=== PATIENT | female | born 1995 | race Caucasian/White ===

== ENCOUNTER 2021-08-26 08:59 | Emergency (ER) | payer OTHER, SELFPAY ==
[2021-08-26 09:08] VITALS: BP 114/74; PULSE 97; RESP 16; TEMP 37.3; O2SAT 99
--- NOTE | 2021-08-26 09:30 | ED.FEMALEGU ---
HPI - Female Genitourinary General Chief complaint: Urogenital-Female Stated complaint: poss uti Source: patient Mode of arrival: ambulatory Limitations: no limitations History of Present Illness HPI Narrative: Patient is a 25-year-old female who presents complaining of dysuria and frequency x3 days. Patient reports lower pelvic pain but also reports started her menstrual cycle today. She denies fever, flank pain and all other complaints at this time. Patient denies taking vqbd-jvb-[id number] medications prior to arrival. Related Data Home Medications Medication Instructions Recorded Confirmed fluoxetine 20 mg PO DAILY 08/26/21 08/26/21 Allergies Allergy/AdvReac Type Severity Reaction Status Date / Time No Known Allergies Allergy Verified 08/26/21 09:23 Review of Systems Review of Systems: CONSTITUTIONAL: Denies fever, chills, or sweats. EYES: Denies visual changes, redness, or discharge. ENT: Denies rhinorrhea, congestion, sore throat, or otalgia. CARDIOVASCULAR: Denies chest pain, palpitations, or edema. RESPIRATORY: Denies cough or dyspnea. GASTROINTESTINAL: Denies abdominal pain, nausea, vomiting, or diarrhea. GENITOURINARY: Reports dysuria and frequency SKIN: Denies rash or itching. MUSCULOSKELETAL: Denies back pain, joint pain, or myalgia. NEUROLOGIC: Denies headache, numbness, dizziness, or weakness. PSYCHIATRIC: Denies anxiety or depression. [facility] Past Medical History Medical History (Updated 08/26/21 @ 09:35 by ALEJANDRO Dixon) No significant past medical history Surgical History Surgical History (Updated 08/26/21 @ 09:32 by ALEJANDRO Dixon) No significant past surgical history Social History Social History (Updated 08/26/21 @ 09:32 by ALEJANDRO Dixon) Smoking status: Never smoker Alcohol intake: never Substance use: never Living arrangements: with family Comments At the time of signature, I have reviewed and agree with nursing past medical, surgical, social, and family history unless otherwise noted. Please see nursing chart for further information. There is no relevant family history pertinent to the presenting complaint. Exam Narrative: GENERAL: Well-appearing, well-nourished, and in no acute distress. HEAD: Normocephalic, atraumatic. EYES: EOMI. No redness or drainage. Conjunctiva are normal. ENT: Mucous membranes pink and moist. CHEST: No respiratory distress. HEART: Regular rate and rhythm. EXTREMITIES: Normal range of motion. No edema. SKIN: Warm, dry, no rash. NEURO: No focal deficits. Alert and oriented x3. Gait steady. PSYCH: Normal affect. No signs of depression or anxiety. Course Vital Signs Vital signs: Vital Signs Temperature 37.3 C 08/26/21 09:08 Pulse Rate 97 08/26/21 09:08 Respiratory Rate 16 08/26/21 09:08 Blood Pressure 114/74 08/26/21 09:08 Pulse Oximetry 99 08/26/21 09:08 Temperature 37.3 C 08/26/21 09:08 Pulse Rate 97 08/26/21 09:08 Respiratory Rate 16 08/26/21 09:08 Blood Pressure 114/74 08/26/21 09:08 Pulse Oximetry 99 08/26/21 09:08 Reviewed MDM - Female Genitourinary MDM Narrative Medical decision making narrative: Patient's urine is positive for nitrates and leukocytes. Patient is symptomatic. Patient to be started on nitrofurantoin at this time. Discussed red flags in which patient needs to seek further medical care. Patient agrees with plan of care. Patient is stable for discharge to home with outpatient follow-up as discussed. Differential Diagnosis Differential diagnosis: Likely urinary tract infection, trichomoniasis, ovarian cyst and cystitis Medical Records Attestation: I reviewed the patient's medical records. Lab Data Attestation: I reviewed the patient's lab results. Labs: Urine Glucose Negative Reference Range: Negative Urine Bilirubin Negative
== END 2021-08-26 09:40 | disposition home or self-care (01) ==
PROVIDERS: Emergency Provider Nurse Practitioner
DX: N39.0 Urinary tract infection, site not specified (principal); F32.A Depression, unspecified
CPT/HCPCS: 81003; 87077; 87086; 87088; 87186; 99213; G0463

== ENCOUNTER 2025-03-09 08:46 | Outpatient (CLI) | payer OTHER, SELFPAY ==
--- OUTSIDE RECORDS SUMMARY | 2025-03-09 08:53 | XMS_ITS | Referral Summary ---
Author Organization [facility] Address [address] [place] [address] Care Team Providers Care Security Guards Dispatcher Name Role Phone No, Physician Primary Care Provider Encounters Date Type Department Care Team Description 03/04/2025 Telephone [facility] [address] [place] [phone] Ernestina Epps RN OB US Orders 02/21/2025 2:30 PM CDT Office Visit [facility] at [address] [place] [address] Pili Gregorio NP COVID-19 (Primary Dx) 02/01/2025 Results Follow-Up [facility] [address] [place] [phone] Thalia Serrano NP Pap and HPV, reflex to HPV Genotypes 01/16/2025 Results Follow-Up [facility] [address] [place] [address] [address] [place] [address] Valentino Calderón MD Surgical pathology 01/11/2025 4:30 PM CDT - 01/11/2025 11:59 PM CDT Hospital Encounter [address] [address] Discharge Disposition: Discharge to home or self care 01/11/2025 3:45 PM CDT Procedure visit Gaurav Sullivan [address] [place] [address] [address] [place] [phone] Valentino Calderón MD ASCUS with positive high risk HPV cervical (Primary Dx) 12/16/2024 Results Follow-Up [facility] [address] [place] [phone] Thalia Serrano, FREIGHT RECEIVER RPR Titer from Last 3 Months Allergies No known active allergies Medications FLUoxetine (PROzac) 20 mg capsule Take 1 capsule (20 mg total) by mouth daily 02/02/2022 Active valACYclovir (Valtrex) 1 gram tabletIndicatio ns:Prophylaxis, Medical Take 2 tablets every 12 hours for 1 day only for episodic treatment. 30 tablet 12/28/2024 Active Active Problems Problem Noted Date Diagnosed Date Irregular menses 12/07/2024 Overview (12/07/2024): Continue to monitor. Discussed lab work ordered by me, but patient will forward her recent labs ordered by an outside provider for me to review. Herpes simplex type 1 infection 12/07/2024 Overview (12/07/2024): Culture and serum confirmed. First outbreak to genital area and perineum in November 2024. Sinusitis 07/03/2015 Overview (01/18/2017): Sinusitis Asthma 08/11/2014 Overview (01/18/2017): Asthma Social History Tobacco Use Types Packs/Day Years Used Date Smoking Tobacco: Former Smokeless Tobacco: Former Tobacco Cessation:Counseling Given: Not Answered Alcohol Use Standard Drinks/Week Comments No 0 (1 standard drink = 0.6 oz pur e alcohol) PHQ-2 Answer Date Recorded PHQ-2 Total Score (If total score is 3 or more points, staff should administer the PHQ-9) 0 11/16/2024 Comments No Sex and Gender Information Value Date Recorded Sex Assigned at Not on file Legal Sex Female 12:03 PM RECORD LABEL INTERN Gender Identity Not on file Sexual Orientation Not on file Last Filed Vital Signs Vital Sign Reading Time Taken Comments Blood Pressure 100/66 02/21/2025 2:32 PM CDT Pulse 103 02/21/2025 2:32 PM CDT Temperature 36.4 C (97.6 F) 02/21/2025 2:32 PM CDT Respiratory Rate 16 02/21/2025 2:32 PM CDT Oxygen Saturation 98% 02/21/2025 2:32 PM CDT Inhaled Oxygen Concentration - - Weight 63.5 kg (140 lb) 02/21/2025 2:32 PM CDT Height 167.6 cm (5' 6) 02/21/2025 2:32 PM CDT Body Mass Index 22.6 02/21/2025 2:32 PM CDT Plan of Treatment Not on file Procedures Procedure Name Priority Date/Time Associated Diagnosis Comments POC INFLUENZA A/B, COVID-19 ANTIGEN Routine 02/21/2025 2:46 PM CDT COVID-19 RI COLPOSCOPY CERVIX ENDOCERVICAL CURETTAGE Routine 01/11/2025 3:45 PM CDT ASCUS with positive high risk HPV cervical SURGICAL PATHOLOGY Routine 01/11/2025 11 :52 AM CDT TREPONEMA PALLIDUM AB Routine 12/15/2024 3:41 PM RECORD LABEL INTERN RPR TITER Routine 12/15/2024 3:41 PM RECORD LABEL INTERN RPR TITER Routine 12/15/2024 3:41 PM RECORD LABEL INTERN HEPATITIS C ANTIBODY Routine 11/17/2024 9:38 AM RECORD LABEL INTERN Vaginal lesion PAP AND HPV, REFLEX TO HPV GENOTYPES Routine 11/16/2024 3:53 PM RECORD LABEL INTERN Well woman exam from Last 3 Months or Most Recently Relevant to Health Maintenance Results * (ABNORMAL) POC Influenza A/B, COVID-19 antigen (02/21/2025 2:46 PM CDT) Influenza A Ag, POC Negative Negative [facility] Influenza B Ag, POC Negative Negative [facility] COVID-19 Ag POC Positive(A) Presumptive Negative, Invalid [facility] Nasal 02/21/2025 2:46 PM CDT Pili Gregorio FREIGHT RECEIVER POINT OF CARE TEST OR DERABLES Final Result [facility] [address] [facility] [address] [place] [phone] * RI COLPOSCOPY CERVIX ENDOCERVICAL CURETTAGE (01/11/2025 3:45 PM CDT) Narrative Valentino Calderón MD - 01/11/2025 3:45 PM CDT Valentino Calderón MD 01/11/2025 4:59 PM Colposcopy/Procedures Performed by: Valentino Calderón MD Authorized by: Valentino Calderón MD Consent given by: patient Risks, alternatives, and questions discussed: yes Pre-procedure: Prepped with: acetic acid Indication: Indication: ASC-US and HPV Procedure: Procedure: Colposcopy w/ endocervical curettage [place] speculum was placed in the vagina: yes Under colposcopic examination the transition zone was seen in entirety: yes Endocervix was curetted using a Kevorkian curette: yes Specimen to pathology: yes no Post-procedure: Findings comment: Faint rim of WE Impression comment: WNL to HPV effect Patient tolerance of procedure: Patient tolerated the procedure well with no immediate complications Valentino Calderón MD IN CLINIC/BEDSIDE ORDERABL ES Final Result * Surgical pathology (01/11/2025 11:52 AM CDT) Endocervix, curettage 01/11/2025 11:52 AM CDT 01/12/2025 11:52 AM CDT Narrative 01/14/2025 1:02 PM CDT EPIC results best viewed via link to PDF [facility] Department of Pathology [address] [place] [id number] Note to Patients: This report may contain a detailed description of human tissue sent by a health care provider to the laboratory for pathologic evaluation. The content of this report is essential for diagnosis and may provide important critical findings. This information may be unfamiliar to patients to review without a medical professional present. It is advised that the patient review this report in the presence of a health care provider who can answer questions and explain the details. Final Report Patient Name: ROXANNE GALINDO Address: [address] [place], [place] [phone] Gender: F : 1995 (Age: 29) Service: Location: N : [id number] [facility] #: [id number] Patient Type: SPECIMEN Taken: 01/11/2025 Received: 01/12/2025 Accessioned: 01/12/2025 Reported: 01/14/2025 Physician(s):Valentino Calderón M.D. Diagnosis: A. Uterus, endocervical curettage- Fragments of benign endocervical and ectocervical mucosa with mild inflammation and reactive change Negative for dysplasia and carcinoma Perla Persaud M.D. Report Electronically Reviewed and Signed Out By Perla Persaud M.D. 01/14/2025 13:02:26 Specimen(s) Received: A: Endocervical curettage Microscopic Description: Microscopic examination corroborates the diagnosis. Sections demonstrate abundant fragments of benign endocervical tissue, predominantly detached glandular strips. Also present are scattered minute fragments of detached ectocervical mucosa. 1 minute fragments show slight atypical features but also scattered inflammatory cells. p16 IHC stain with appropriate control also reviewed is negative Clinical History: ASCUS with positive high risk HPV cervical Gross Description: The specimen is submitted in a single formalin filled container labeled ROXANNE GALINDO and endocervical curettage. It is an approximate 0.5 cc aggregate of blood-tinged mucoid material. All in one cassette. Wilman Cason R.N., P.A./Douglas Corrales MD PhD REPORT IMAGES AND SCANNED DOCUMENTS, IF INCLUDED, ONLY VIEWABLE IN PDF VERSION OF REPORT The performance characteristics of some immunohistochemical stains, fluorescence in-situ hybridization tests and immunophenotyping by flow cytometry cited in this report (if any) were determined by the Surgical Pathology Department at [facility] as part of an ongoing senior quality assurance analyst program and in compliance with federally mandated regulations drawn from the Clinical Laboratory Improvement Act of 1988 (CLIA '88). Some of these tests rely on the use of analyte specific reagents and are subject to specific labeling requirements by the US Food and Drug Administration. Such diagnostic tests may only be performed in a facility that is certified by the Department of Health and Human Services as a high complexity laboratory under CLIA '88. The FDA has determined that such clearance or approval is not necessary. This test is used for clinical purposes. It should not be regarded as investigational or for research. Nevertheless, federal rules concerning the medical use of analyte specific reagents require that the following disclaimer be attached to the report: This test was developed and its performance characteristics determined by the Surgical Pathology Department [facility]. It has not been cleared or approved by the U. S. Food and Drug Administration. Note for decalcified specimens: This assay has not been validated on decalcified tissues. Results should be interpreted with caution given the possibility of false negativity on decalcified specimens Valentino Calderón MD LAB PATHOLOGY ORDERABLES F inal Result * Treponema pallidum Ab (12/15/2024 3:41 PM RECORD LABEL INTERN) Reagin ab NEGATIVE NEGATIVE [facility] Comment: Nontreponemal antibodies detected, but syphilis is unlikely, possible biological false positive result. Clinical evaluation should be performed to identify signs, symptoms, or history of past infection. If recent exposure is suspected, submit a new sample in 2-4 weeks. 12/15/2024 3:41 PM RECORD LABEL INTERN 12/15/2024 3:41 PM RECORD LABEL INTERN Thalia Serrano NP LAB BLOOD ORDERABLES Final Resul t QUEST [facility] [address] [place] [address] * (ABNORMAL) RPR TITER (12/15/2024 3:41 PM RECORD LABEL INTERN) RPR titer 1:8(H) [facility] 12/15/2024 3:41 PM RECORD LABEL INTERN 12/15/2024 3:41 PM RECORD LABEL INTERN Thalia Serrano NP LAB MICROBIOLOGY - GENERAL ORDER LESLEE Final Result Performing Organization Address City/[facility]/ZIP Co de Phone Number [email or web address] [address] [facility] [place] [address] * (ABNORMAL) RPR Titer (12/15/2024 3:41 PM RECORD LABEL INTERN) Pathologist [facility] RPR REACTIVE(A) NON-REACTI VE [facility] 12/15/2024 3:41 PM RECORD LABEL INTERN 12/15/2024 3:41 PM RECORD LABEL INTERN Thalia Serrano NP LAB MICROBIOLOGY - GENERAL ORDER LESLEE Final Result Performing Organization Address [facility] Phone Number [facility] [address] [place] [address] * Hepatitis C antibody Blood (11/17/2024 9:38 AM RECORD LABEL INTERN) [facility] Hep C Ab NON-REACTI VE NON-REACT CAROLYNN [facility] Comment: HCV antibody was non-reactive. There is no laboratory evidence of HCV infection. In most cases, no further action is required. However, if recent HCV exposure is suspected, a test for HCV RNA (test code 67327) is suggested. For additional information please refer to http://education.Snaptalent/faq/XBH17a4 (This link is being provided for informational/ educational purposes only.) Blood 11/17/2024 9:38 AM RECORD LABEL INTERN 11/17/2024 9:39 AM RECORD LABEL INTERN Thalia Serrano NP LAB MICROBIOLOGY - GENERAL ORDER LESLEE Final Result Performing Organization Address [facility] Co de Phone Number [email or web address] [address] [facility] [place] [address] * (ABNORMAL) Pap and HPV, reflex to HPV Genotypes (11/16/2024 3:53 PM RECORD LABEL INTERN) [facility] CLINICAL INFORMATION: [facility] Comment:Routine exam LMP [facility] Comment:[id number] Previous Pap [facility] Comment:NONE GIVEN Prev. Bx [facility] Comment:NONE GIVEN SOURCE: [facility] Comment:Cervix, Endocervix Pap, specimen adequacy [facility] Comment: Satisfactory for evaluation. Endocervical/transformation zone component present. Pap, general categorization (A) [facility] Comment:Cytology Results: Ep ithelial Cell Abnormality HPV interp (A) [facility] Comment: Atypical Squamous Cells of Undetermined Significance (ASC-US) Infection: [facility] Comment: Shift in vaginal thea suggestive of bacterial vaginosis. COMMENTS [facility] Comment: This Pap test has been evaluated with computer assisted technology. Suggest clinical correlation and follow-up as clinically appropriate Manager [facility] Comment: TMK, CT(ASCP) CT screening location: [place] [address] [place] [address] Review motor vehicle licence examiner [facility] Comment: YOANA, CT(ASCP) CT screening location: [place] [address] [address]DA [employer] Pathologist [facility] Comment: Jacob Pearson M.D., Board Certified in Anatomic Pathology and Cytopathology. (electronic signature) Comment [facility] Comment: EXPLANATORY NOTE: The Pap is a screening test for cervical cancer. It is not a diagnostic test and is subject to false negative and false positive results. It is most reliable when a satisfactory sample, regularly obtained, is submitted with relevant clinical findings and history, and when the Pap result is evaluated along with historic and current clinical information. Human papillomavirus DNA, High Risk E6/E7 Detected (A) [facility] Comment: Detected One or more High Risk HPV types (16,18,31,33, 35,39,45,51,52,56,58,59,66,68) was detected. Methodology: Real Time PCR Thin prep-Endocervica l 11/16/2024 3:53 PM RECORD LABEL INTERN 11/17/2024 2:12 AM RECORD LABEL INTERN us Thalia Serrano FREIGHT RECEIVER LAB CYTOLOGY ORDERABLES Final Re sult [facility] [address] [place] [address] [facility] [address] [place] [address] from Last 3 Months or Most Recently Relevant to Health Maintenance Additional Health Concerns Infection Onset Date Last Indicated COVID: Recovered Comment:Added based on recent COVID infection. 03/03/2025 025 Insurance [place] [id number] [facility] [employer] Care Teams Security Guards Dispatcher Relationship Specialty Start Date End Date No, Physician PCP - General 04/17/17
--- OUTSIDE RECORDS SUMMARY | 2025-03-09 08:53 | XMS_ITS | Clinical Summary ---
Author Organization [facility] Address [address] [place] [address] Care Team Providers Care Catalog Specialist Name Role Phone Unavailable Primary Care Provider Unavailabl e Allergies No known active allergies Medications No known medications Active Problems No known active problems Social History Tobacco Use Types Packs/Day Years Used Date Smoking Tobacco: Never Smokeless Tobacco: Never Alcohol Use Standard Drinks/Week Comments Yes 1 (1 standard drink = 0.6 oz pur e alcohol) Comments Unknown Sex and Gender Information Value Date Recorded Sex Assigned at Not on file Legal Sex Female 5:01 PM FIBER OPTIC SPLICER Gender Identity Not on file Sexual Orientation Not on file Plan of Treatment Health Maintenance Due Date Last Done Comments HPV/Cotest (21-29) 2014 DTAP/TDAP/TD VACCINES (6 - Td or Tdap) 01/09/2023 01/09/2013, 06/18/2007, 01/30/1999, Additional history exists CERVICAL CANCER SCREENING 2023 HPV/Cotest (30-65) 2023 PAP SMEAR 2023 INFLUENZA VACCINE (#1) 2024 01/09/2013 COVID-19 Vaccine ( season) 2024 01/05/2021, 12/13/2020 HEPATITIS B VACCINES Completed 01/09/2013, 09/04/1994, 01/08/1994, Additional history exists HPV VACCINES Aged Out No longer eligi ble based on patient's age to complete this topic Insurance [employer] [id number] [address] [phone]
--- OUTSIDE RECORDS SUMMARY | 2025-03-09 08:53 | XMS_ITS | Clinical Summary ---
Author Organization [facility] Address [address] [place] [address] Phone Care Team Providers Care Stove Carriage Operator Name Role Phone Liberty Garrett APRN, CNP Primary Care P rovider Allergies No known active allergies Medications FLUoxetine (PROzac) 20 MG CapsuleIndicat ions:Anxiety and depression TAKE 1 CAPSULE BY MOUTH DAILY 90 Capsule 5 Active FLUoxetine (PROzac) 20 MG CapsuleIndicat ions:Anxiety and depression Take 1 Capsule by mouth daily. 90 Capsule 1 4 02/20/20 25 Discontinued Active Problems Problem Noted Date Diagnosed Date MDD (major depressive disorder), recurrent episo de, mild 11/18/2020 Back pain Encounters Date Type Department Care Team Description 02/18[facility] [place] [address] [place] [address] Liberty Garrett APRN, CNP Medication Refill 01/05/2025 Telephone [facility] [place] [address] [place] [address] Liberty Garrett APRN, CNP Results 12/30/2024 9:15 AM CDT Telemedicine [facility] [place] [address] [place] [address] Liberty Garrett, PSYCHOSOCIAL REHABILITATION COUNSELOR, JOB ESTIMATOR Hyperinsulinemia (Primary Dx); Arthralgia of multiple sites; Myalgia; Chronic fatigue and malaise 12/29/2024 Travel from Last 3 Months Immunizations Immunization Administration Dates Next Due Adenovirus Vaccine 01/09/2013 Covid-19, Mrna, Lnp-s, Pf, 3 0 Mcg/0.3 Ml Dose ([employer]) 01/05/2021,12/13/2020 DTAP VACCINE, UNSPECIFIED FORMULATION 01/30/1999 ,08/16/1995 DTP Vaccine 01/29/1994 DTP-Hib 06/08/1994,04/09/1994 HEP A/HEP B Combined Vaccine 01/09/2013 Hepatitis B Vaccine,unspecif ied Formulation 09/04/1994,01/08/1994,1993 Hib Vaccine,unspecified Formulation 03/16/1995,0 01/29/1994 Inactivated Polio Vaccine 01/09/2013 MMR Vaccine 06/28/1998,03/16/1995 Meningococcal Vaccine 01/09/2013 OPV 01/30/1999, 5,04/09/1994,01/29 TDAP Vaccine 01/09/2013,06/18/2007 Varicella Vaccine Live 01/09/2013 Family History Medical History Relation Name Comments No Known Problems Brother High Cholesterol Mother Hypertension Mother Relation Name Status Comments Brother Alive Father Alive Mother Alive Social History Tobacco Use Types Packs/Day Years Used Date Smoking Tobacco: Never Smokeless Tobacco: Never Tobacco Cessation:Counseling Given: Not Answered Alcohol Use Standard Drinks/Week Comments Yes 2 (1 standard drink = 0.6 oz pur e alcohol) [facility] [employer] Answer Date Recorded In the past 12 months has [employer], [employer], oil, or water [employer] threatened to shut off services in your home? No 12/29/2024 Social Connection and Isolat ion Panel [NHANES] Answer Date Recorded In a typical week, how many times do you talk on the phone with family, friends, or neighbors? More than three times a week 12/29/2024 How often do you get togethe r with friends or relatives? Once a week 12/29/2024 How often do you attend [facility] or voodoo services? Never 12/29/2024 Do you belong to any clubs o r organizations such as episcopalian groups, unions, fraternal or athletic groups, or school groups? No 12/29/2024 How often do you attend meet ings of the clubs or organizations you belong to? Never 12/29/2024 Are you , , di vorced, , never , or living with a partner? Never 12/29/2024 AUDIT-C Answer Date Recorded Q1: How often do you have a drink containing alc ohol? Monthly or less 12/29/2024 Q2: How many drinks containi ng alcohol do you have on a typical day when you are drinking? 3 or 4 12/29/2024 Q3: How often do you have si x or more drinks on one occasion? Less than monthly 12/29/2024 Overall Financial Resource Strain (CARDIA) Answe r Date Recorded How hard is it for you to pa y for the very basics like food, housing, medical care, and heating? Not very hard 12/29/2024 PHQ-2 Answer Date Recorded Total Score - Questions 1-9 14 05/16 [facility] of Occupat ional [facility] - Occupational Stress Questionnaire Answer Date Recorded Do you feel stress - tense, restless, nervous, or anxious, or unable to sleep at night because your mind is troubled all the time - these days? To some extent 12/29/2024 Exercise Vital Sign Answer Date Recorde d On average, how many days pe r week do you engage in moderate to strenuous exercise (like a brisk walk)? 3 days 12/29/2024 On average, how many minutes do you engage in exercise at this level? 60 min 12/29/2024 Hunger Vital Sign Answer Date Recorded Within the past 12 months, y ou worried that your food would run out before you got the money to buy more. Never true 12/30/19 25 Within the past 12 months, t he food you bought just didn't last and you didn't have money to get more. Never true 12/29/2024 PRAPARE - Transportation Answer Date Re corded In the past 12 months, has l ack of transportation kept you from medical appointments or from getting medications? No 12/12 In the past 12 months, has l ack of transportation kept you from meetings, work, or from getting things needed for daily living? No 12/29/2024 Housing Stability Vital Sign Answer Demetrius e Recorded In the last 12 months, was t here a time when you were not able to pay the mortgage or rent on time? No 12/29/2024 In the past 12 months, how m any times have you moved where you were living? 0 12/29/2024 At any time in the past 12 m ont, were you homeless or living in a detention (including now)? No 12/29/2024 Education Answer Date Recorded What is the highest level of school you have completed or the highest degree you have received? Associate degree: occupational, technical, or vocational program 08/27/2023 Comments No Sex and Gender Information Value Date Recorded Sex Assigned at Not on file Legal Sex Female 11:52 PM CDT Gender Identity Not on file Sexual Orientation Not on file Last Filed Vital Signs Vital Sign Reading Time Taken Comments Blood Pressure 114/82 09/07/2024 8:08 AM ACCOUNT DEVELOPMENT ASSOCIATE Pulse 103 09/07/2024 8:08 AM ACCOUNT DEVELOPMENT ASSOCIATE Temperature 36.2 C (97.2 F) 09/07/2024 8:08 AM ACCOUNT DEVELOPMENT ASSOCIATE Respiratory Rate 14 09/07/2024 8:08 AM ACCOUNT DEVELOPMENT ASSOCIATE Oxygen Saturation 98% 09/07/2024 8:08 AM ACCOUNT DEVELOPMENT ASSOCIATE Inhaled Oxygen Concentration - - Weight 61.2 kg (135 lb) 12/30/2023 1:34 PM CDT Height 167.6 cm (5' 6) 12/30/2023 1:34 PM CDT Body Mass Index 21.79 12/30/2023 1:34 PM CDT Plan of Treatment Health Maintenance Due Date Last Done Comments Hepatitis C Virus (HCV) Screening 1993 Pap Smear 08/31/2022 08/31/2019 DTaP/Tdap/Td Immunization (8 - Td or Tdap) 01/09/2023 01/09/2013, 06/18/2007, 01/30/1999, Additional history exists Td Immunization Every 10 Years (Adults With 1 Tdap) 01/09/2023 01/09/2013, 06/18/2007 Cervical Cancer Screening (CCS) 2023 HPV/Cotest 2023 SARS-COV-2 Immunization ( season) 2024 01/05/2021, 12/13/2020 Influenza Immunization (Season Ended) 2025 Respiratory Syncytial Virus (RSV) Immunization (Adult) (1 - 1-dose 75+ series) 2068 Hepatitis B Immunization Completed 013, 09/04/1994, 01/08/1994, Additional history exists Meningococcal Immunization (ACWY) Aged Out 01/09/2013 No longer eligible based on patient's age to complete this topic Human Papillomavirus (HPV) Immunization Aged Out No longer eligible based on patient's age to complete this topic Pneumococcal Immunization Combined Aged Out No longer eligible based on patient's age to complete this topic Rotavirus Immunization Aged Out No lo nger eligible based on patient's age to complete this topic Goals Goal Patient Goal Type Associated Problems Recent Progress Patient-Stated? Author Behavioral Health Behavioral Health On track(2020 4:01 PM CDT) Yes Radha Cruz LCSW Note: I want to feel normal again. I don't want to 'just get by. to have reduction of depression symptoms. Goal Reviewed with: patient today Readiness to change: Ready to change Department associated with goal: [facility] Steps to achieve goal: to attend, at least twice monthly for 3 months, 45 minute counseling sessions. to identify, verbalize and process at least three contributing factors/triggers to depression. T o identify at least two lifestyle changes/habits. to put into action, at least one lifestyle change/habit, for one month or longer, to reduce and or cope with depression. Behavioral Health Behavioral Health On track(2020 4:01 PM CDT) No Radha Cruz LCSW Note: Roxanne will have an increase in self reliance and respect and confidence Goal Reviewed with: patient today Readiness to change: Ready to change Department associated with goal: [facility] Steps to achieve goal: 1. will identify and process contributing factors/barriers to self-confidence. 2. will be able to identify, and report strong belief, in three or more personal strengths, qualities and/or abilities. 3. will identify at least two activities to engage in for the purpose of strengthening self confidence. 4. will engage in at least one activity to strengthen self-confidence. 5. Will attend 45 minute individual sessions, approximately 2x/mo for 3 months, then reassess. Procedures Procedure Name Priority Date/Time Associated Diagnosis Comments LAB - MISCELLANEOUS 01/01/2025 1 2:00 AM CDT SARAN SCREEN MULTIPLEX W/REFLEX NELL 01/01/2025 12:00 AM CDT RHEUMATOID FACTOR (RF) SCREEN 01/01/2025 12:00 AM CDT FERRITIN 01/01/2025 12:00 AM CDT IRON,TRANSFERN,CALC.TIBC, %SAT 01/01/2025 12:00 AM CDT LAB - MISCELLANEOUS 01/01/2025 1 2:00 AM CDT THYROGLOBULIN ANTIBODY 12:00 AM CDT THYROID STIMULATING HORMONE (TSH) 01/01/2025 12:00 AM CDT from Last 3 Months Results * IRON,TRANSFERN,CALC.TIBC,%SAT (01/01/2025 12:00 AM CDT) 01/01/2025 us Provider Scan CHEMISTRY ORDERABLES Final Resul t Performing Organization Address City/[facility]/ZIP Co de Phone Number SCAN * LAB - MISCELLANEOUS (01/01/2025 12:00 AM CDT) Only the most recent of2 resultswithin the time period is included. 01/01/2025 us Provider Scan CHEMISTRY ORDERABLES Final Resul t SCAN * THYROID STIMULATING HORMONE (TSH) (01/01/2025 12:00 AM CDT) 01/01/2025 us Provider Scan CHEMISTRY ORDERABLES Final Resul t Performing Organization Address City/[facility] Co de Phone Number SCAN * THYROGLOBULIN ANTIBODY (01/01/2025 12:00 AM CDT) 01/01/2025 us Provider Scan CHEMISTRY ORDERABLES Final Resul t SCAN * RHEUMATOID FACTOR (RF) SCREEN (01/01/2025 12:00 AM CDT) 01/01/2025 us Provider Scan IMMUNOLOGY ORDERABLES Final Resu lt SCAN * FERRITIN (01/01/2025 12:00 AM CDT) 01/01/2025 us Provider Scan CHEMISTRY ORDERABLES Final Resul t SCAN * SARAN SCREEN MULTIPLEX W/REFLEX NELL (01/01/2025 12:00 AM CDT) 01/01/2025 us Provider Scan IMMUNOLOGY ORDERABLES Final Resu lt SCAN from Last 3 Months Insurance CONSOCIATE Member Subscriber Plan / Payer (Ef fective 2023-Present) Name:Roxanne Galindo Relation to Subscriber:Self Name:Roxanne Galindo Payer ID:[id number] Group ID:[id number] Type:Not on file Address: [address] [address] Care Teams Stove Carriage Operator Relationship Specialty Start Date End Date Liberty Garrett, PSYCHOSOCIAL REHABILITATION COUNSELOR, JOB ESTIMATOR [address] [place] [address] PCP - General Advanced Practice Nurse 06/13/21
--- OUTSIDE RECORDS SUMMARY | 2025-03-09 08:53 | XMS_ITS | Encounter Summary ---
Author Organization [facility] Healthcare Address [address] [place] [address] Care Team Providers Care Window Installation Subcontractor Name Role Phone No, Physician Primary Care Provider [phone] Encounter Details Date Type Department Care Team (Late st Contact Info) Description 02/01/2025 Results Follow-Up [facility] [address] [place] [address] [address] [place] [address] Thalia Serrano, PLUMBING ENGINEER [address] [place] [address] [address] [address] Pap and HPV, reflex to HPV Genotypes Social History Tobacco Use Types Packs/Day Years Used Date Smoking Tobacco: Former Smokeless Tobacco: Former Alcohol Use Standard Drinks/Week Comments No 0 (1 standard drink = 0.6 oz pur e alcohol) PHQ-2 Answer Date Recorded PHQ-2 Total Score (If total score is 3 or more points, staff should administer the PHQ-9) 0 11/16/2024 Comments No Sex and Gender Information Value Date Recorded Sex Assigned at Not on file Legal Sex Female 12:03 PM BOILER/CHILLER TECHNICIAN Gender Identity Not on file Sexual Orientation Not on file documented as of this encounter Plan of Treatment Not on file documented as of this encounter Visit Diagnoses Not on filedocumented in this encounter Additional Health Concerns Infection Onset Date Last Indicated Resolved Time COVID: Suspected 02/21/2025 02/21/2025 02/21/2025 2:47 PM CDT COVID19 02/21/2025 02/21/2025 03/03/2025 7:26 PM CDT COVID: Recovered Comment:Added based on recent COVID infection. 03/03/2025 03/04/2025 documented as of this encounter Care Teams Window Installation Subcontractor Relationship Specialty Start Date End Date No, Physician PCP - General 04/17/17 documented as of this encounter
--- OUTSIDE RECORDS SUMMARY | 2025-03-09 08:53 | XMS_ITS | Encounter Summary ---
Author Organization [facility] Healthcare Address [address] [place] [address] Care Team Providers Care Field Hauler Name Role Phone No, Physician Primary Care Provider [phone] Encounter Details Date Type Department Care Team (Late st Contact Info) Description 05/02/2018 Telephone [facility] [address] [place] [address] Alessandra Holguin, RN Social History Tobacco Use Types Packs/Day Years Used Date Smoking Tobacco: Former Smokeless Tobacco: Former Alcohol Use Standard Drinks/Week Comments No 0 (1 standard drink = 0.6 oz pur e alcohol) Comments No Sex and Gender Information Value Date Recorded Sex Assigned at Not on file Legal Sex Female 12:03 PM PST SUPERVISOR Gender Identity Not on file Sexual Orientation [...] documented as of this encounter Care Teams Field Hauler Relationship Specialty Start Date End Date No, Physician PCP - General 04/17/17 documented as of this encounter
--- OUTSIDE RECORDS SUMMARY | 2025-03-09 08:53 | XMS_ITS | Clinical Summary ---
Author Organization [facility] Medical [facility] Building B Address [address] [place] [address] Care Team Providers Care Reimbursement Representative Name Role Phone No, Physician Primary Care Provider [phone] Allergies No known active allergies Medications FLUoxetine [...] (01/18/2017): Sinusitis Asthma 08/11/2014 Overview (01/18/2017): Asthma Encounters Date Type Department Care Team Description 03/04/2025 Telephone [facility] [address] [facility] [address] [place] [address] Ernestina Epps RN OB US Orders 02/21/2025 2:30 PM CDT Office Visit [facility] at [address] [place] [address] Pili Gregorio NP COVID-19 (Primary Dx) 02/01/2025 Results Follow-Up [facility] [address] [facility] [address] [place] [address] Thalia Serrano NP Pap and HPV, reflex to HPV Genotypes 01/16/2025 Results Follow-Up [place] [facility] [address] [facility] [address] [place] [address] Valentino Calderón MD Surgical pathology 01/11/2025 4:30 PM CDT - 01/11/2025 11:59 PM CDT Hospital Encounter [address] [address] Discharge Disposition: Discharge to home or self care 01/11/2025 3:45 PM CDT Procedure visit [facility] [address] [facility] [address] [place] [address] Valentino Calderón MD ASCUS with positive high risk HPV cervical (Primary Dx) 12/16/2024 Results Follow-Up [facility] [address] [place] [phone] Thalia Serrano NP RPR Titer from Last 3 Months Medical History Medical History Date Comments Asthma Asthma Depression Depression Family History Medical History Relation Name Comments Lung cancer Father's Brother Cancer, jenny g; Cervical cancer Maternal Grandmother Uterine cancer Maternal Grandmother Other Other 1 Family history of cancer, brain; Lung cancer Other 2 Family history of Cancer, lung; Colon cancer Other 3 Family history of Cancer, colon; Lung cancer Paternal Grandfather Cancer, lung; Colon cancer Paternal Grandmother Liver cancer Paternal Grandmother Cancer, liver; Breast cancer Neg Hx Ovarian cancer Neg Hx Relation Name Status Comments Father's Brother Maternal Grandmother Other 1 Other 2 Other 3 Paternal Grandfather Paternal Grandmother Social History Tobacco Use Types Packs/Day Years [...] on file Legal Sex Female 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 EQUIPMENT TECHNICIAN Gender Identity Not on file Sexual Orientation Not on file Obstetrics History Para Term AB IAB SAB Ectopic Multiple Livin g Live Births 0 0 0 0 0 0 0 0 0 0 0 Last Filed Vital Signs Vital Sign Reading [...] 02/21/2025 2:32 PM CDT Plan of Treatment Health Maintenance Due Date Last Done Comments Pneumococcal vaccine <65 (1 of 2 - PCV) 2012 Varicella Vaccines (2 of 2 - 13+ 2-dose series) 02/06/2013 01/09/2013 DTaP/Tdap/Td Vaccine (8 - Td or Tdap) 01/09/2023 01/09/2013, 06/18/2007, 01/30/1999, Additional history exists Covid-19 Vaccine ( season) 2024 01/05/2021, 12/13/2020 Influenza Vaccine (Season Ended) 2025 Cervical Cancer Screening 11/16/20252024, 11/13/2023, 04/30/2022 Depression Screening 11/16/2025 11/16/2024, 04/30/2022, 08/31/2019, Additional history exists Regular Well Visit/Exam 18-64 11/16/2025 11/16/2024, 04/30/2022, 08/31/2019, Additional history exists Hepatitis B Screening Completed 01/09/2013 , 09/04/1994, 01/08/1994, Additional history exists Hepatitis C Screening Completed 11/17/2024 HPV Vaccines Aged Out No longer eligi ble based on patient's age to complete this topic Procedures Procedure Name Priority Date/Time Associated Diagnosis Comments POC INFLUENZA A/B, COVID-19 ANTIGEN Routine 02/21/2025 2:46 PM CDT COVID-19 ND COLPOSCOPY CERVIX ENDOCERVICAL CURETTAGE Routine 01/11/2025 3:45 PM CDT ASCUS with positive high risk HPV cervical SURGICAL PATHOLOGY Routine 01/11/2025 11 :52 AM CDT TREPONEMA PALLIDUM AB Routine 12/15/2024 3:41 PM ELECTRICAL EQUIPMENT TECHNICIAN RPR TITER Routine 12/15/2024 3:41 PM ELECTRICAL EQUIPMENT TECHNICIAN RPR TITER Routine 12/15/2024 3:41 PM ELECTRICAL EQUIPMENT TECHNICIAN HEPATITIS C ANTIBODY Routine 11/17/2024 9:38 AM ELECTRICAL EQUIPMENT TECHNICIAN Vaginal lesion PAP AND HPV, REFLEX TO HPV GENOTYPES Routine 11/16/2024 3:53 PM ELECTRICAL EQUIPMENT TECHNICIAN Well woman exam from Last 3 Months or Most Recently Relevant to Health Maintenance Results * (ABNORMAL) POC Influenza A/B, COVID-19 antigen (02/21/2025 2:46 PM CDT) Influenza A Ag, POC Negative Negative [facility] Influenza B Ag, POC Negative Negative [facility] COVID-19 Ag POC Positive(A) Presumptive Negative, Invalid [facility] Nasal 02/21/2025 2:46 PM CDT us Pilimoi Silvestre Darline HEAD HOUSEKEEPER POINT OF CARE TEST OR DERABLES Final Result [facility] [address] [address], [facility] * ND COLPOSCOPY CERVIX ENDOCERVICAL CURETTAGE (01/11/2025 3:45 PM CDT) Narrative Valentino Calderón MD - 01/11/2025 3:45 PM CDT Valetnino Calderón MD 01/11/2025 4:59 PM Colposcopy/Procedures Performed by: Valentino Calderón MD Authorized by: Valentino Calderón MD Consent given by: patient Risks, alternatives, and questions discussed: yes Pre-procedure: Prepped with: acetic acid Indication: Indication: ASC-US and HPV Procedure: Procedure: Colposcopy w/ endocervical curettage Casscoe speculum was placed in the vagina: yes [...] results best viewed via link to PDF [facility] Department of Pathology [address] [place] [id number] Note to Patients: This report may [...] Final Report Patient Name: ROXANNE GALINDO Address: [address] [place] [id number] Gender: F : 1995 (Age: 29) Service: Location: Hospital #: [id number] Patient Type: SPECIMEN Taken: 01/11/2025 Received: 01/12/2025 [...] determined by the Surgical Pathology Department at [facility] as part of an ongoing business quality assurance analyst program and in compliance [...] characteristics determined by the Surgical Pathology Department [facility]. It has not been cleared or approved by the U. S. Food and Drug Administration. Note for decalcified specimens: This assay has not been validated on decalcified tissues. Results should be interpreted with caution given the possibility of false negativity on decalcified specimens Valentino Calderón MD LAB PATHOLOGY ORDERABLES F inal Result * Treponema pallidum Ab (12/15/2024 3:41 PM ELECTRICAL EQUIPMENT TECHNICIAN) Reagin ab NEGATIVE NEGATIVE [facility] Comment: Nontreponemal antibodies detected, but syphilis is unlikely, possible biological false positive result. Clinical evaluation should be performed to identify signs, symptoms, or history of past infection. If recent exposure is suspected, submit a new sample in 2-4 weeks. 12/15/2024 3:41 PM ELECTRICAL EQUIPMENT TECHNICIAN 12/15/2024 3:41 PM ELECTRICAL EQUIPMENT TECHNICIAN Thalia Serrano NP LAB BLOOD ORDERABLES Final Resul t Performing Organization Address City/[facility]/ZIP Co de Phone Number QUEST [facility] [address] [place] [address] * (ABNORMAL) RPR TITER (12/15/2024 3:41 PM ELECTRICAL EQUIPMENT TECHNICIAN) RPR titer 1:8(H) [facility] 12/15/2024 3:41 PM ELECTRICAL EQUIPMENT TECHNICIAN 12/15/2024 3:41 PM ELECTRICAL EQUIPMENT TECHNICIAN Thalia Serrano NP LAB MICROBIOLOGY - GENERAL ORDER LESLEE Final Result Performing Organization Address City/[facility]/ZIP Co de Phone Number [facility]ST [facility] [address] [place] [address] * (ABNORMAL) RPR Titer (12/15/2024 3:41 PM ELECTRICAL EQUIPMENT TECHNICIAN) Pathologist [facility] RPR REACTIVE(A) NON-REACTI VE [facility] 12/15/2024 3:41 PM ELECTRICAL EQUIPMENT TECHNICIAN 12/15/2024 3:41 PM ELECTRICAL EQUIPMENT TECHNICIAN Thalia Serrano NP LAB MICROBIOLOGY - GENERAL ORDER LESLEE Final Result Performing Organization Address [facility] de Phone Number [facility]ST [facility] [address] [place] [address] * Hepatitis C antibody Blood (11/17/2024 9:38 AM ELECTRICAL EQUIPMENT TECHNICIAN) Pathologist [facility] Hep C Ab NON-REACTI VE NON-REACT CAROLYNN [facility] Comment: HCV antibody was non-reactive. There is no laboratory evidence of HCV infection. In most cases, no further action is required. However, if recent HCV exposure is suspected, a test for HCV RNA (test code 03029) is suggested. For additional information please refer to http://education.[employer]/faq/SXL51k9 (This link is being provided for informational/ educational purposes only.) Blood 11/17/2024 9:38 AM ELECTRICAL EQUIPMENT TECHNICIAN 11/17/2024 9:39 AM ELECTRICAL EQUIPMENT TECHNICIAN Thalia Serrano NP LAB MICROBIOLOGY - GENERAL ORDER LESLEE Final Result Performing Organization Address [facility] Co de Phone Number [facility]ST [facility] [address] [place] [address] * (ABNORMAL) Pap and HPV, reflex to HPV Genotypes (11/16/2024 3:53 PM ELECTRICAL EQUIPMENT TECHNICIAN) [facility] CLINICAL INFORMATION: [facility] Comment:Routine exam [facility] Comment:[id number] Previous [facility] Comment:NONE GIVEN Prev. Bx [facility] Comment:NONE GIVEN SOURCE: [facility] Comment:Cervix, Endocervix Pap, specimen adequacy [facility] Comment: Satisfactory for evaluation. Endocervical/transformation zone component present. Pap, general categorization (A) [facility] Comment:Cytology Results: Ep ithelial Cell Abnormality HPV interp (A) [facility] Comment: Atypical Squamous Cells of Undetermined Significance (ASC-US) Infection: [facility] Comment: Shift in vaginal thea suggestive of bacterial vaginosis. COMMENTS [facility] Comment: This Pap test has been evaluated with computer assisted technology. Suggest clinical correlation and follow-up as clinically appropriate [employer] [facility] Comment: TMK, CT(ASCP) CT screening location: [place] [address] Administration [place]onsec[place] [address] Review vegetable tester [facility] Comment: YOANA, CT(ASCP) CT screening location: [place] [address] Administration [place] [address] Pathologist [facility] Comment: Jacob Pearson M.D., Board Certified in Anatomic Pathology and Cytopathology. (electronic signature) Comment [facility] Comment: EXPLANATORY NOTE: The Pap is a [...] High Risk E6/E7 Detected (A) NOT DETECTED [facility] Comment: Detected One or more High Risk HPV types (16,18,31,33, 35,39,45,51,52,56,58,59,66,68) was detected. Methodology: Real Time PCR Thin prep-Endocervica l 11/16/2024 3:53 PM ELECTRICAL EQUIPMENT TECHNICIAN 11/17/2024 2:12 AM ELECTRICAL EQUIPMENT TECHNICIAN us Thalia Serrano HEAD HOUSEKEEPER LAB CYTOLOGY ORDERABLES Final Re sult Performing Organization Address City/[facility]/ZIP Co de Phone Number [place] [address] Administration [place]DA [place] [phone] [address] from Last 3 Months or Most Recently Relevant to Health Maintenance Additional Health Concerns Infection Onset Date Last Indicated COVID: Recovered Comment:Added based on recent COVID infection. 03/03/2025 025 Insurance [employer] SIG [id number] [facility] [employer] Care Teams Reimbursement Representative Relationship Specialty Start Date End Date No, Physician PCP - General 04/17/17
--- OUTSIDE RECORDS SUMMARY | 2025-03-09 08:53 | XMS_ITS | Encounter Summary ---
Author Organization [facility] Healthcare Address [address] [place] [address] Care Team Providers Care Toll Collector Supervisor Name Role Phone No, Physician Primary Care Provider [phone] Encounter Details Date Type Department Care Team (Late st Contact Info) Description 01/16/2025 Results Follow-Up [facility] [address] [place] [address] [place] [address] Valentino Calderón MD [address] [place] [address] [address] [place] [address] Surgical pathology Social History Tobacco Use Types Packs/Day Years [...] on file 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
[2025-03-09 10:58] LABS: Beta HCG Quantitative 537.39 mIU/ML
== END 2025-03-09 08:47 | disposition home or self-care (01) ==
PROVIDERS: Visit Provider Obstetrics & Gynecology
DX: N91.2 Amenorrhea, unspecified (principal)
CPT/HCPCS: 36415; 84702

== ENCOUNTER 2025-03-12 07:42 | Outpatient (CLI) | payer OTHER, SELFPAY ==
--- OUTSIDE RECORDS SUMMARY | 2025-03-12 07:50 | XMS_ITS | Encounter Summary ---
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
--- OUTSIDE RECORDS SUMMARY | 2025-03-12 07:50 | XMS_ITS | Encounter Summary ---
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
--- OUTSIDE RECORDS SUMMARY | 2025-03-12 07:50 | XMS_ITS | Clinical Summary ---
Author Organization [facility] Address [address] [place] [address] Care Team Providers Care Sales Executive Insurance Name Role Phone No, Physician Primary Care Provider [phone] Allergies No known active allergies Medications FLUoxetine [...] Department Care Team Description 03/04/2025 Telephone [facility] [address] [facility] [address] [place] [address] Ernestina Epps RN OB US Orders 02/21/2025 2:30 PM CDT Office Visit [facility] Care at [address] [place] [address] Pili Gregorio NP COVID-19 (Primary Dx) 02/01/2025 Results Follow-Up [facility] [address] [facility] [address] [place] [address] Thalia Serrano NP Pap and HPV, reflex to HPV Genotypes 01/16/2025 Results Follow-Up [place] [facility] [address] [facility] [address] [place] [address] Valentino Calderón MD Surgical pathology 01/11/2025 4:30 PM CDT - 01/11/2025 11:59 PM CDT Hospital Encounter [address] [address] Discharge Disposition: Discharge to home or self care 01/11/2025 3:45 PM CDT Procedure visit [place] [address] [facility] [address] [place] [phone] Valentino Calderón MD ASCUS with positive high risk HPV cervical (Primary Dx) 12/16/2024 Results Follow-Up [place] [address] [place] [address] Thalia Serrano NP RPR Titer from Last [...] on file 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 Gender Identity Not on file Sexual Orientation [...] ANTIGEN Routine 02/21/2025 2:46 PM CDT COVID-19 [place] COLPOSCOPY CERVIX ENDOCERVICAL CURETTAGE Routine 01/11/2025 3:45 PM CDT ASCUS with positive high risk HPV cervical SURGICAL PATHOLOGY Routine 01/11/2025 11 :52 AM CDT TREPONEMA PALLIDUM AB Routine 12/15/2024 3:41 PM SALON DESIGNER RPR TITER Routine 12/15/2024 3:41 PM SALON DESIGNER RPR TITER Routine 12/15/2024 3:41 PM SALON DESIGNER HEPATITIS C ANTIBODY Routine 11/17/2024 9:38 AM SALON DESIGNER Vaginal lesion PAP AND HPV, REFLEX TO HPV GENOTYPES Routine 11/16/2024 3:53 PM SALON DESIGNER Well woman exam from Last 3 Months or Most Recently Relevant to Health Maintenance Results * (ABNORMAL) POC Influenza A/B, COVID-19 antigen (02/21/2025 2:46 PM CDT) Influenza A Ag, POC Negative Negative [facility] [place] Influenza B Ag, POC Negative Negative [facility] [place] COVID-19 Ag POC Positive(A) Presumptive Negative, Invalid [facility] [place] Nasal 02/21/2025 2:46 PM CDT us Pilimoi Silvestre Darline COMPUTATIONAL BIOLOGIST POINT OF CARE TEST OR DERABLES Final Result [facility] [place] [address] [address], [facility] * [place] COLPOSCOPY CERVIX ENDOCERVICAL CURETTAGE (01/11/2025 3:45 PM CDT) Narrative Valentino Calderón MD - 01/11/2025 3:45 PM CDT Valentino Calderón MD 01/11/2025 4:59 PM Colposcopy/Procedures Performed by: Valentino Calderón MD Authorized by: Valentino Calderón MD Consent given by: patient Risks, alternatives, and questions discussed: yes Pre-procedure: Prepped with: acetic acid Indication: Indication: ASC-US and HPV Procedure: Procedure: Colposcopy w/ endocervical curettage [place] speculum was placed in the vagina: yes [...] results best viewed via link to PDF [facility] Department of Pathology [address] [place] [address] Note to Patients: This report may [...] Final Report Patient Name: ROXANNE GALINDO Address: [address] [place] [address] Gender: F : 1995 (Age: 29) Service: Location: Hospital #: [id number] Patient Type: SPECIMEN Taken: 01/11/2025 Received: 01/12/2025 [...] determined by the Surgical Pathology Department at [facility] as part of an ongoing quality officer program and in compliance with federally mandated [...] characteristics determined by the Surgical Pathology Department [facility]. It has not been cleared or approved by the U. S. Food and Drug Administration. Note for decalcified specimens: This assay has not been validated on decalcified tissues. Results should be interpreted with caution given the possibility of false negativity on decalcified specimens Valentino Calderón MD LAB PATHOLOGY ORDERABLES F inal Result * Treponema pallidum Ab (12/15/2024 3:41 PM SALON DESIGNER) Reagin ab NEGATIVE NEGATIVE [facility] Comment: Nontreponemal antibodies detected, but syphilis is unlikely, possible biological false positive result. Clinical evaluation should be performed to identify signs, symptoms, or history of past infection. If recent exposure is suspected, submit a new sample in 2-4 weeks. 12/15/2024 3:41 PM SALON DESIGNER 12/15/2024 3:41 PM SALON DESIGNER Thalia Serrano NP LAB BLOOD ORDERABLES Final Resul t Performing Organization Address City/[facility]/ZIP Co de Phone Number QUEST [facility] [address] [place] [address] * (ABNORMAL) RPR TITER (12/15/2024 3:41 PM SALON DESIGNER) RPR titer 1:8(H) [facility] 12/15/2024 3:41 PM SALON DESIGNER 12/15/2024 3:41 PM SALON DESIGNER Thalia Serrano NP LAB MICROBIOLOGY - GENERAL ORDER LESLEE Final Result Performing Organization Address City/[facility]/ZIP Co de Phone Number QUEST [facility] [address] [place] [address] * (ABNORMAL) RPR Titer (12/15/2024 3:41 PM SALON DESIGNER) Pathologist [facility] RPR REACTIVE(A) NON-REACTI VE [facility] 12/15/2024 3:41 PM SALON DESIGNER 12/15/2024 3:41 PM SALON DESIGNER Thalia Serrano NP LAB MICROBIOLOGY - GENERAL ORDER LESLEE Final Result Performing Organization Address [facility] de Phone Number QUEST [facility] [address] [place] [address] * Hepatitis C antibody Blood (11/17/2024 9:38 AM SALON DESIGNER) Pathologist [facility] Hep C Ab NON-REACTI VE NON-REACT CAROLYNN [facility] Comment: HCV antibody was non-reactive. There is no laboratory evidence of HCV infection. In most cases, no further action is required. However, if recent HCV exposure is suspected, a test for HCV RNA (test code 59083) is suggested. For additional information please refer to http://education.Lot78/faq/OMR56p6 (This link is being provided for informational/ educational purposes only.) Blood 11/17/2024 9:38 AM SALON DESIGNER 11/17/2024 9:39 AM SALON DESIGNER Thalia Serrano NP LAB MICROBIOLOGY - GENERAL ORDER LESLEE Final Result Performing Organization Address [facility] Co de Phone Number QUEST [facility] [address] [place] [address] * (ABNORMAL) Pap and HPV, reflex to HPV Genotypes (11/16/2024 3:53 PM SALON DESIGNER) [facility] CLINICAL INFORMATION: [facility] Comment:Routine exam [facility]:[id number] [facility] Comment:NONE GIVEN Prev. Bx [facility] Comment:NONE GIVEN SOURCE: [facility] Comment:Cervix, Endocervix Pap, specimen adequacy [facility] Comment: Satisfactory for evaluation. Endocervical/transformation zone component present. Pap, general categorization (A) [facility] Comment:Cytology Results: Ep ithelial Cell Abnormality HPV interp (A) [facility] Comment: Atypical Squamous Cells of Undetermined Significance (ASC-US) Infection: [facility] Comment: Shift in vaginal thea suggestive of bacterial vaginosis. COMMENTS [facility] Comment: This Pap test has been evaluated with computer assisted technology. Suggest clinical correlation and follow-up as clinically appropriate Care Transition Manager Que [facility] Comment: TMK, CT(ASCP) CT screening location: [place] [address] [address] Fonsec[address] [address] Review medical coding auditor [facility] Comment: YOANA, CT(ASCP) CT screening location: [place] [address] [address] [place]sec[place] [address] Pathologist [facility] Comment: Jacob Pearson M.D., Board Certified in Anatomic Pathology and Cytopathology. (electronic signature) Comment [facility] Comment: EXPLANATORY NOTE: The Pap [...] Detected (A) NOT DETECTED [facility] Comment: Detected One or more High Risk HPV types (16,18,31,33, 35,39,45,51,52,56,58,59,66,68) was detected. Methodology: Real Time PCR Thin prep-Endocervica l 11/16/2024 3:53 PM SALON DESIGNER 11/17/2024 2:12 AM SALON DESIGNER us Thalia Serrano COMPUTATIONAL BIOLOGIST LAB CYTOLOGY ORDERABLES Final Re sult Performing Organization Address City/[facility]/ZIP Co de Phone Number [place] [address] [address] [place] [place] [phone] [address] from Last 3 Months or Most Recently Relevant to Health Maintenance Additional Health Concerns Infection Onset Date Last Indicated COVID: Recovered Comment:Added based on recent COVID infection. 03/03/2025 025 Insurance [employer]ET[employer] SIG [id number] [facility] [employer] Care Teams Sales Executive Insurance Relationship Specialty Start Date End Date No, Physician PCP - General 04/17/17
--- OUTSIDE RECORDS SUMMARY | 2025-03-12 07:50 | XMS_ITS | Referral Summary ---
Author Organization [facility] Medical Office Building B Address [address] [place] [address] Care Team Providers Care Engraver Seals Name Role Phone No, Physician Primary Care Provider [phone] Encounters Date Type Department Care Team Description 03/04/2025 Telephone [facility] [address] [facility] [address] [place] [address] Ernestina Epps RN OB US Orders 02/21/2025 2:30 PM CDT Office Visit [facility] Convenient Care at [address] [place] [address] Pili Gregorio NP COVID-19 (Primary Dx) 02/01/2025 Results Follow-Up [facility] [address] [place] [address] Thalia Serrano NP Pap and HPV, reflex to HPV Genotypes 01/16/2025 Results Follow-Up [facility] [address] [place] [address] [address] [place] [address] Valentino Calderón MD Surgical pathology 01/11/2025 4:30 PM CDT - 01/11/2025 11:59 PM CDT Hospital Encounter [address] [address] Discharge Disposition: Discharge to home or self care 01/11/2025 3:45 PM CDT Procedure visit Gaurav Sullivan [address] [place] [address] [address] [place] [address] Valentino Calderón MD ASCUS with positive high risk HPV cervical (Primary Dx) 12/16/2024 Results Follow-Up [facility] [address] [facility] [address] [place] [address] Thalia Serrano, ADMINISTRATIVE CLERK RPR Titer from Last 3 Months Allergies [...] on file Legal Sex Female 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 Gender Identity Not on file Sexual Orientation [...] ANTIGEN Routine 02/21/2025 2:46 PM CDT COVID-19 [place] COLPOSCOPY CERVIX ENDOCERVICAL CURETTAGE Routine 01/11/2025 3:45 PM CDT ASCUS with positive high risk HPV cervical SURGICAL PATHOLOGY Routine 01/11/2025 11 :52 AM CDT TREPONEMA PALLIDUM AB Routine 12/15/2024 3:41 PM CHILD AND FAMILY THERAPIST RPR TITER Routine 12/15/2024 3:41 PM CHILD AND FAMILY THERAPIST RPR TITER Routine 12/15/2024 3:41 PM CHILD AND FAMILY THERAPIST HEPATITIS C ANTIBODY Routine 11/17/2024 9:38 AM CHILD AND FAMILY THERAPIST Vaginal lesion PAP AND HPV, REFLEX TO HPV GENOTYPES Routine 11/16/2024 3:53 PM CHILD AND FAMILY THERAPIST Well woman exam from Last 3 Months or Most Recently Relevant to Health Maintenance Results * (ABNORMAL) POC Influenza A/B, COVID-19 antigen (02/21/2025 2:46 PM CDT) Influenza A Ag, POC Negative Negative [facility] Influenza B Ag, POC Negative Negative [facility] COVID-19 Ag POC Positive(A) Presumptive Negative, Invalid [facility] Nasal 02/21/2025 2:46 PM CDT Pili Gregorio ADMINISTRATIVE CLERK POINT OF CARE TEST OR DERABLES Final Result [facility] [address] [facility] [address] [place] [phone] * [place] COLPOSCOPY CERVIX ENDOCERVICAL CURETTAGE (01/11/2025 3:45 PM CDT) Narrative Valentino Calderón MD - 01/11/2025 3:45 PM CDT Valentino Calderón MD 01/11/2025 4:59 PM Colposcopy/Procedures Performed by: Valentino Calderón MD Authorized by: Valentino Calderón MD Consent given by: patient Risks, alternatives, and questions discussed: yes Pre-procedure: Prepped with: acetic acid Indication: Indication: ASC-US and HPV Procedure: Procedure: Colposcopy w/ endocervical curettage [place] speculum was placed in the vagina: yes [...] results best viewed via link to PDF [facility] Department of Pathology [address] [place] [address] Note to Patients: This report may [...] Final Report Patient Name: ROXANNE GALINDO Address: [address] [place], [place] [address] Gender: F : 1995 (Age: 29) Service: Location: N : [id number] [facility] #: [id number] Patient Type: SPECIMEN Taken: 01/11/2025 Received: 01/12/2025 [...] determined by the Surgical Pathology Department at [facility] as part of an ongoing quality control inspector program and in compliance with federally mandated [...] characteristics determined by the Surgical Pathology Department [facility]. It has not been cleared or approved by the U. S. Food and Drug Administration. Note for decalcified specimens: This assay has not been validated on decalcified tissues. Results should be interpreted with caution given the possibility of false negativity on decalcified specimens Valentino Calderón MD LAB PATHOLOGY ORDERABLES F inal Result * Treponema pallidum Ab (12/15/2024 3:41 PM CHILD AND FAMILY THERAPIST) Reagin ab NEGATIVE NEGATIVE [facility] Comment: Nontreponemal antibodies detected, but syphilis is unlikely, possible biological false positive result. Clinical evaluation should be performed to identify signs, symptoms, or history of past infection. If recent exposure is suspected, submit a new sample in 2-4 weeks. 12/15/2024 3:41 PM CHILD AND FAMILY THERAPIST 12/15/2024 3:41 PM CHILD AND FAMILY THERAPIST Thalia Serrano NP LAB BLOOD ORDERABLES Final Resul t [facility]ST [facility] [address] [place] [address] * (ABNORMAL) RPR TITER (12/15/2024 3:41 PM CHILD AND FAMILY THERAPIST) RPR titer 1:8(H) [facility] 12/15/2024 3:41 PM CHILD AND FAMILY THERAPIST 12/15/2024 3:41 PM CHILD AND FAMILY THERAPIST Thalia Serrano NP LAB MICROBIOLOGY - GENERAL ORDER LESLEE Final Result Performing Organization Address City/[facility]/ZIP Co de Phone Number [facility] [address] [facility] [place] [address] * (ABNORMAL) RPR Titer (12/15/2024 3:41 PM CHILD AND FAMILY THERAPIST) Pathologist [facility] RPR REACTIVE(A) NON-REACTI VE [facility] 12/15/2024 3:41 PM CHILD AND FAMILY THERAPIST 12/15/2024 3:41 PM CHILD AND FAMILY THERAPIST Thalia Serrano NP LAB MICROBIOLOGY - GENERAL ORDER LESLEE Final Result Performing Organization Address [facility] Phone Number [facility] [address] [place] [address] * Hepatitis C antibody Blood (11/17/2024 9:38 AM CHILD AND FAMILY THERAPIST) [facility] Hep C Ab NON-REACTI VE NON-REACT CAROLYNN [facility] Comment: HCV antibody was non-reactive. There is no laboratory evidence of HCV infection. In most cases, no further action is required. However, if recent HCV exposure is suspected, a test for HCV RNA (test code 35459) is suggested. For additional information please refer to http://education.EPIS/faq/FVN65m4 (This link is being provided for informational/ educational purposes only.) Blood 11/17/2024 9:38 AM CHILD AND FAMILY THERAPIST 11/17/2024 9:39 AM CHILD AND FAMILY THERAPIST Thalia Serrano NP LAB MICROBIOLOGY - GENERAL ORDER LESLEE Final Result Performing Organization Address [facility] Co de Phone Number [facility] [address] [facility] [place] [address] * (ABNORMAL) Pap and HPV, reflex to HPV Genotypes (11/16/2024 3:53 PM CHILD AND FAMILY THERAPIST) [facility] CLINICAL INFORMATION: [facility] Comment:Routine exam LMP [facility] Comment:[id number] Previous Pap [facility] Comment:NONE GIVEN Prev. Bx [facility] Comment:NONE GIVEN SOURCE: [facility] Comment:Cervix, Endocervix Pap, specimen adequacy [facility] Comment: Satisfactory for evaluation. Endocervical/transformation zone component present. Pap, general categorization (A) [facility] Comment:Cytology Results: Ep ithelial Cell Abnormality HPV interp (A) [facility] Comment: Atypical Squamous Cells of Undetermined Significance (ASC-US) Infection: [facility] Comment: Shift in vaginal thea suggestive of bacterial vaginosis. COMMENTS [facility] Comment: This Pap test has been evaluated with computer assisted technology. Suggest clinical correlation and follow-up as clinically appropriate Client Care Representative Que [facility] Comment: TMK, CT(ASCP) CT screening location: [place] [address] [place] [address] Review yard foreman [facility] Comment: YOANA, CT(ASCP) CT screening location: [place] [address] [address]IDA Fonseca [facility] Pathologist [facility] Comment: Jacob Pearson M.D., Board Certified in Anatomic Pathology and Cytopathology. (electronic signature) Comment [facility] Comment: EXPLANATORY NOTE: The Pap is a [...] High Risk E6/E7 Detected (A) NOT DETECTED [facility] Comment: Detected One or more High Risk HPV types (16,18,31,33, 35,39,45,51,52,56,58,59,66,68) was detected. Methodology: Real Time PCR Thin prep-Endocervica l 11/16/2024 3:53 PM CHILD AND FAMILY THERAPIST 11/17/2024 2:12 AM CHILD AND FAMILY THERAPIST us Thalia Serrano ADMINISTRATIVE CLERK LAB CYTOLOGY ORDERABLES Final Re sult [facility] [address] [place] [address] [facility] [address] [place] [address] from Last 3 Months or Most Recently Relevant to Health Maintenance Additional Health Concerns Infection Onset Date Last Indicated COVID: Recovered Comment:Added based on recent COVID infection. 03/03/2025 025 Insurance T SIG [id number] [facility] [employer] Care Teams Engraver Seals Relationship Specialty Start Date End Date No, Physician PCP - General 04/17/17
--- OUTSIDE RECORDS SUMMARY | 2025-03-12 07:50 | XMS_ITS | Encounter Summary ---
Author Organization [facility] Healthcare Address [address] [place] [address] Care Team Providers Care Scorekeeper Name Role Phone No, Physician Primary Care Provider [phone] Encounter Details Date Type Department Care Team (Late st Contact Info) Description 05/02/2018 Telephone [facility] [address] [place] [address] Alessandra Holguin, RN Social History Tobacco Use Types Packs/Day Years Used Date Smoking Tobacco: Former Smokeless Tobacco: Former Alcohol Use Standard Drinks/Week Comments No 0 (1 standard drink = 0.6 oz pur e alcohol) Comments No Sex and Gender Information Value Date Recorded Sex Assigned at Not on file 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
--- OUTSIDE RECORDS SUMMARY | 2025-03-12 07:50 | XMS_ITS | Clinical Summary ---
Author Organization [facility] Address [address] [place] [address] Phone Care Team Providers Care Patent Paralegal Name Role Phone Liberty Grarett APRN, CNP Primary Care P rovider Allergies [...] Type Department Care Team Description 02/18/2025 Refill [facility] - [address] [place] [address] Liberty Garrett APRN, CNP Medication Refill 01/05/2025 Telephone [facility] - [address] [place] [address] Liberty Garrett APRN, CNP Results 12/30/2024 9:15 AM CDT Telemedicine [facility] - [address] [place] [address] Liberty Garrett, NURSING EDUCATOR, FOURDRINIER TENDER Hyperinsulinemia (Primary Dx); Arthralgia of multiple sites; Myalgia; Chronic fatigue and malaise 12/29/2024 Travel from Last 3 Months Immunizations Immunization Administration Dates Next Due Adenovirus Vaccine 01/09/2013 Covid-19, Mrna, Lnp-s, Pf, 3 0 Mcg/0.3 Ml Dose ([place]) 01/05/2021,12/13/2020 DTAP VACCINE, UNSPECIFIED FORMULATION 01/30/1999 ,08/16/1995 [...] drink = 0.6 oz pur e alcohol) [facility] [employer] Answer Date Recorded In the past 12 months has [employer], [place], oil, or water Brit[employer] threatened to shut off services in your [...] week 12/29/2024 How often do you attend [facility] or congregation services? Never 12/29/2024 Do you belong to any clubs o r organizations such as uatsdin groups, unions, fraternal or athletic groups, or [...] Total Score - Questions 1-9 14 05/16 [facility] of Occupat ional [facility] - Occupational Stress Questionnaire Answer [...] were you homeless or living in a mcfp (including now)? No 12/29/2024 Education Answer Date [...] Comments Blood Pressure 114/82 09/07/2024 8:08 AM HAULAGE BOSS Pulse 103 09/07/2024 8:08 AM HAULAGE BOSS Temperature 36.2 C (97.2 F) 09/07/2024 8:08 AM HAULAGE BOSS Respiratory Rate 14 09/07/2024 8:08 AM HAULAGE BOSS Oxygen Saturation 98% 09/07/2024 8:08 AM HAULAGE BOSS Inhaled Oxygen Concentration - - Weight 61.2 [...] Ready to change Department associated with goal: [facility] Steps to achieve goal: [...] Ready to change Department associated with goal: [facility] Steps to achieve goal: [...] ORDERABLES Final Resul t Performing Organization Address City/[facility]/ZIP Co de Phone Number SCAN * LAB - MISCELLANEOUS (01/01/2025 12:00 AM CDT) Only the most recent of2 resultswithin the time period is included. 01/01/2025 us Provider Scan CHEMISTRY ORDERABLES Final Resul t SCAN * THYROID STIMULATING HORMONE (TSH) (01/01/2025 12:00 AM CDT) 01/01/2025 us Provider Scan CHEMISTRY ORDERABLES Final Resul t Performing Organization Address City/[facility] Co de Phone Number SCAN * THYROGLOBULIN [...] Galindo Relation to Subscriber:Self Name:Roxanne Galindo Payer ID:[id number] Group ID:[id number] Type:Not on file Address: [address] [address] Care Teams Patent Paralegal Relationship Specialty Start Date End Date Liberty Garrett, NURSING EDUCATOR, FOURDRINIER TENDER [address] [place] [address] PCP - General Advanced Practice Nurse 06/13/21
--- OUTSIDE RECORDS SUMMARY | 2025-03-12 07:50 | XMS_ITS | Clinical Summary ---
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
== END 2025-03-12 07:43 | disposition home or self-care (01) ==
PROVIDERS: Visit Provider Obstetrics & Gynecology
DX: N91.2 Amenorrhea, unspecified (principal)
CPT/HCPCS: 36415; 84702